=== PATIENT | male | born 1985 | race Caucasian/White ===

== ENCOUNTER 2018-03-25 15:20 | Emergency (ER) | payer BC, OTHER ==
--- NOTE | 2018-03-25 15:32 | EDPHY ---
H & P Stated Complaint: fatigue, dizziness, muscles spasms, night sweats, chills Time Seen by Provider: 03/25/18 15:31 - Medical/Surgical History Hx Asthma: No Hx Chronic Respiratory Disease: No Hx Diabetes: No Hx Cardiac Disease: No Hx Renal Disease: No Hx Cirrhosis: No Hx Alcoholism: No Hx HIV/AIDS: No Hx Splenectomy or Spleen Trauma: No - Social History Smoking Status: Never smoked Constitutional: Initial Vital Signs Temperature (C) 36.6 C 03/25/18 15:23 Heart Rate 82 03/25/18 15:23 Respiratory Rate 18 03/25/18 15:23 Blood Pressure 111/78 03/25/18 15:23 O2 Sat (%) 97 03/25/18 15:23 O2 Delivery Mode Room Air Allergies/Adverse Reactions: No Known Allergies Allergy (Unverified 03/25/18 15:22) Home Medications: Medication Instructions Recorded NK [No Known Home Meds] 03/25/18 Medical Decision Making ED Course/Re-evaluation: CHIEF COMPLAINT: Fatigue, dizziness, chills HISTORY OF PRESENT ILLNESS: The patient is a 33 y/o male with numerous complaints including fatigue, dizziness, muscles spasms, night sweats, chills, and a metallic taste in his mouth. Around 1 month ago diagnosed with prostatitis at an urgent care and started taking antibiotics. Since starting the antibiotics his symptoms started. He saw a urologist one week ago, who told the patient that the patient no longer had prostatitis and he could stop taking the antibiotics. However, his symptoms have not improved since stopping the antibiotics. Yesterday he had "urethra discomfort" and pressure in the testicles that has subsided today. Today he developed supra-pubic abdominal pain. He does have an abnormal sensation in his rectum and was unsure if this was a hemorrhoid. No sore throat , swollen lymph nodes, chest pain, shortness of breath, numbness, paresthesias. REVIEW OF SYSTEMS: A comprehensive 10 system review of systems is otherwise negative aside from elements mentioned in the history of present illness and medical decision making. PHYSICAL EXAM: HR, BP, O2 Sat, RR. Temp noted General Appearance: Alert, well hydrated, appropriate, and non-toxic appearing. Head: Atraumatic without scalp tenderness or obvious injury Eyes: Pupils equal, round, reactive to light and accommodation, EOMI, no trauma , no injection. Ears: Clear bilaterally, no perforation, normal landmarks Nose: Atraumatic, no rhinorrhea, clear. Throat: There is no erythema or exudates, no lesions, normal tonsils, mucus membranes moist. Neck: Supple, 2+ carotid upstroke, nontender, no submandibular or subclavicular lymphadenopathy. Respiratory: No retractions, no distress, no wheezes, and no accessory muscle use. Lungs are clear to auscultation bilaterally. Cardiovascular: Regular rate and rhythm, no murmurs, rubs, or gallops. Bilateral carotid, radial, dorsalis pedis, and posterior tibial pulses intact. Good capillary refill all extremities. Gastrointestinal: Abdomen is soft, nontender, non-distended, no masses, no rebound, no guarding, no peritoneal signs. Rectal: Small rectal skin tag, no tenderness to palpation of the prostate. Musculoskeletal: Normal active ROM of all extremities, atraumatic. Neurological: Alert, appropriate, and interactive. The patient has normal DTRs and non-focal cranial nerves, motor, sensory, and cerebellar exam. Skin: No rashes, good turgor, no nodules on palpation. Past medical history: Denies Past surgical history: Denies Family history: Denies Social history: Lives in [place], , mother at bedside DIAGNOSTICS/PROCEDURES/CRITICAL CARE TIME: None indicated DIFFERENTIAL DIAGNOSIS: The differential diagnosis for the patient's fever included but was not limited to pneumonia, urinary tract infection, viral syndrome, meningitis, and sepsis. MEDICAL DECISION MAKING: The patient is a 33 y/o male with numerous complaints including fatigue, dizziness, muscles spasms, night sweats, chills, and a metallic taste in his mouth since starting and stopping antibiotics for prostatitis. On exam he has no submandibular or subclavicular lymphadenopathy. He also does not have tenderness to palpation of his prostate. Labs ordered. 1639: Patient's CBC and chemistries are unremarkable; UA still pending. All of this patient's laboratory studies are unremarkable. He has waxing waning disease symptoms mostly highlighted by some night sweating after a treated prostatitis. Curiously, the night sweating did not really decreased much when he is being treated for prostatitis and he certainly does not have prostatitis today. I will defer this patient out to Infectious Disease. He has no urgent or emergent problem - Data Points Laboratory Results: Laboratory Results 03/25/18 15:48 03/25/18 15:48 03/25/1818 03/25/18 16:30 15:48 15:48 WBC 8.32 10^3/uL 10^3/uL (3.80-9.50) RBC 5.25 10^6/uL 10^6/uL (4.40-6.38) Hgb 15.8 g/dL g/dL (13.7-17.5) Hct 45.0 % % (40.0-51.0) MCV 85.7 fL fL (81.5-99.8) MCH 30.1 pg pg (27.9-34.1) MCHC 35.1 g/dL g/dL (32.4-36.7) RDW 11.8 % % (11.5-15.2) Plt Count 260 10^3/uL 10^3/uL (150-400) MPV 9.3 fL fL (8.7-11.7) Neut % (Auto) 68.3 % % (39.3-74.2) Lymph % (Auto) 20.8 % % (15.0-45.0) [place] % (Auto) 9.3 % % (4.5-13.0) Eos % (Auto) 0.6 % % (0.6-7.6) Baso % (Auto) 0.6 % % (0.3-1.7) Nucleat RBC Rel Count 0.0 % % (0.0-0.2) Absolute Neuts (auto) 5.69 10^3/uL 10^3/uL (1.70-6.50) Absolute Lymphs (auto) 1.73 10^3/uL 10^3/uL (1.00-3.00) Absolute Monos (auto) 0.77 10^3/uL 10^3/uL (0.30-0.80) Absolute Eos (auto) 0.05 10^3/uL 10^3/uL (0.03-0.40) Absolute Basos (auto) 0.05 10^3/uL 10^3/uL (0.02-0.10) Absolute Nucleated RBC 0.00 10^3/uL 10^3/uL (0-0.01) Immature Gran % 0.4 % % (0.0-1.1) Immature Gran # 0.03 10^3/uL 10^3/uL (0.00-0.10) PT 13.8 SEC SEC (12.0-15.0) INR 1.04 (0.83-1.16) APTT 26.6 SEC SEC (23.0-38.0) ABG Lactic Acid Sodium Potassium Chloride Carbon Dioxide Anion Gap BUN Creatinine Estimated GFR Glucose Calcium Total Bilirubin Lipase Urine Color COLORLESS Urine Appearance CLEAR Urine pH 7.0 (5.0-7.5) Ur Specific [place] 1.002 (1.002-1.030) Urine Protein NEGATIVE (NEGATIVE) Urine Ketones TRACE H (NEGATIVE) Urine Blood NEGATIVE (NEGATIVE) Urine Nitrate NEGATIVE (NEGATIVE) Urine Bilirubin NEGATIVE (NEGATIVE) Urine Urobilinogen NEGATIVE EU EU (0.2-1.0) Ur Leukocyte Esterase NEGATIVE (NEGATIVE) Urine RBC NONE SEEN /hpf /hpf (0-3) Urine WBC 0-1 /hpf /hpf (0-3) Ur Epithelial Cells NONE SEEN /lpf /lpf (NONE-1+) Urine Mucus TRACE /lpf /lpf (NONE-1+) Urine Glucose NEGATIVE (NEGATIVE) 03/25/18 03/25/18 15:48 15:48 WBC RBC Hgb Hct MCV MCH MCHC RDW Plt Count MPV Neut % (Auto) Lymph % (Auto) [place] % (Auto) Eos % (Auto) Baso % (Auto) Nucleat RBC Rel Count Absolute Neuts (auto) Absolute Lymphs (auto) Absolute Monos (auto) Absolute Eos (auto) Absolute Basos (auto) Absolute Nucleated RBC Immature Gran % Immature Gran # PT INR APTT ABG Lactic Acid Cancelled Sodium 134 mEq/L L mEq/L (135-145) Potassium 3.9 mEq/L mEq/L (3.3-5.0) Chloride 96 mEq/L L mEq/L (97-110) Carbon Dioxide 26 mEq/l mEq/l (22-31) Anion Gap 12 mEq/L mEq/L (8-16) BUN 13 mg/dL mg/dL (7-23) Creatinine 1.1 mg/dL mg/dL (0.7-1.3) Estimated GFR > 60 Glucose 95 mg/dL mg/dL (70-100) Calcium 10.0 mg/dL mg/dL (8.5-10.4) Total Bilirubin 0.8 mg/dL mg/dL (0.1-1.4) Lipase 80 IU/L IU/L (23-300) Urine Color Urine Appearance Urine pH Ur Specific [place] Urine Protein Urine Ketones Urine Blood Urine Nitrate Urine Bilirubin Urine Urobilinogen Ur Leukocyte Esterase Urine RBC Urine WBC Ur Epithelial Cells Urine Mucus Urine Glucose Departure - Departure Disposition: Home, Routine, Self-Care Clinical Impression: Unexplained night sweats Instructions: Musculoskeletal Pain (ED) Additional Instructions: Follow up with Infectious Disease regarding recurrent night sweats Referrals: NONE *PRIMARY CARE P,. [Primary Care Provider] - As per Instructions Sanjay Mac MD [Medical Doctor] - As per Instructions Report Scribed for: Aidan Barth Report Scribed by: Jenise Oro Date of Report: 03/25/18 Time of Report: 15:32
[2018-03-25 16:06] LABS: PLATELET COUNT 260 10^3/uL (150-400)
[2018-03-25 16:21] LABS: INR 1.04 (0.83-1.16); PROTIME(PATIENT) 13.8 SEC (12.0-15.0)
[2018-03-25 17:01] VITALS: BP 131/73
== END 2018-03-25 17:41 | disposition home or self-care (01) ==
DX: R61 Generalized hyperhidrosis (principal); R53.83 Other fatigue; R42 Dizziness and giddiness; R68.83 Chills (without fever)

== ENCOUNTER → 2018-10-03 | Outpatient (CLI) | payer BC | LOC: FIMAGING 11:27 | DX: R07.81 Pleurodynia (principal) ==